=== PATIENT | female | born 1980 | race Caucasian/White ===

== ENCOUNTER → 2016-06-21 | Outpatient (REF) | payer BC ==
[~2016-06-21] MED LIST: BUPR15TA PO; DOCU10CA PO; HYDR-3713 PO; IBUP60TA PO; MOTR200T44 PO
[2016-06-21 10:35] LABS: BASO % 0.7 % (0.0-1.0); EOS # 0.2 K/mm3 (0.0-0.50); EOS % 3.1 % (0.0-3.0); LARGE UNSTAINED CELL # 0.1 K/mm3 (0.0-0.4); LARGE UNSTAINED CELL % 2.3 % (0.0-4.0); LYMPH # 1.7 K/mm3 (1.5-4.5); LYMPH % 31.6 % (24.0-44.0); MEAN CORPUSCULAR HEMOGLOBIN 32.5 pg (27.0-33.0); MEAN CORPUSCULAR HGB CONC 34.4 g/dl (32.0-36.5); MEAN CORPUSCULAR VOLUME 94.4 fl (80.0-96.0); MONO # 0.3 K/mm3 (0.0-0.8); MONO % 6.3 % (0.0-5.0); PLATELET COUNT, AUTOMATED 179 k/mm3 (150-450); RED CELL DISTRIBUTION WIDTH 12.6 % (11.5-14.5); WHITE BLOOD COUNT 5.4 K/mm3 (4.0-10.0)
[2016-06-21 11:14] LABS: ALBUMIN 4.2 GM/DL (3.2-5.2); ALBUMIN/GLOBULIN RATIO 1.17 (1.00-1.93); ALKALINE PHOSPHATASE 95 U/L (45-117); ALT/SGPT 30 U/L (12-78); ANION GAP 7 MEQ/L (8-16); AST/SGOT 17 U/L (15-37); BILIRUBIN,TOTAL 0.3 MG/DL (0.2-1.0); BLOOD UREA NITROGEN 13 MG/DL (7-18); CALCIUM LEVEL 8.8 MG/DL (8.5-10.1); CARBON DIOXIDE LEVEL 29 MEQ/L (21-32); CHLORIDE LEVEL 106 MEQ/L (98-107); CREATININE FOR GFR 0.84 MG/DL (0.55-1.02); FERRITIN 72 NG/ML (8-252); FREE T4 1.01 NG/DL (0.76-1.46); GLOMERULAR FILTRATION RATE > 60.0 (>60); GLUCOSE, FASTING 75 MG/DL (70-105); SODIUM LEVEL 142 MEQ/L (136-145); TOTAL PROTEIN 7.8 GM/DL (6.4-8.2)
[2016-06-21 11:16] LABS: VITAMIN B12 LEVEL 675 PG/ML (247-911)
[2016-06-21 11:17] LABS: FOLATE 16.4 NG/ML (>5.4)
[2016-06-21 11:42] LABS: CONTROL LINE MONO INT CTR LINE PRESENT
== END ==
LOC: M LAB REF 10:22
PROVIDERS: ATTEND Physician Assistant Medical
DX: R53.83 Other fatigue (principal)

== ENCOUNTER → 2016-07-15 | Outpatient (REF) | payer BC | END | disposition home or self-care (01) | LOC: M LAB REF 09:10 | PROVIDERS: ATTEND Physician Assistant Medical | DX: R68.83 Chills (without fever) (principal); R52 Pain, unspecified ==

== ENCOUNTER → 2016-08-01 | Outpatient (REF) | payer BC | LOC: M LAB REF 11:16 | PROVIDERS: ATTEND Physician Assistant | DX: R50.9 Fever, unspecified (principal) ==

== ENCOUNTER → 2016-11-03 | Outpatient (REF) | payer BC ==
[2016-11-03 18:03] LABS: ALBUMIN 3.4 GM/DL (3.2-5.2); ALBUMIN/GLOBULIN RATIO 1.06 (1.00-1.93); ALKALINE PHOSPHATASE 93 U/L (45-117); ALT/SGPT 33 U/L (12-78); ANION GAP 7 MEQ/L (8-16); AST/SGOT 19 U/L (15-37); BILIRUBIN,TOTAL 0.2 MG/DL (0.2-1.0); BLOOD UREA NITROGEN 11 MG/DL (7-18); CALCIUM LEVEL 8.2 MG/DL (8.5-10.1); CARBON DIOXIDE LEVEL 29 MEQ/L (21-32); CHLORIDE LEVEL 107 MEQ/L (98-107); CREATININE FOR GFR 0.86 MG/DL (0.55-1.02); FREE T4 0.93 NG/DL (0.76-1.46); GLOMERULAR FILTRATION RATE > 60.0 (>60); GLUCOSE, FASTING 91 MG/DL (70-105); POTASSIUM SERUM 4.3 MEQ/L (3.5-5.1); SODIUM LEVEL 143 MEQ/L (136-145); TOTAL PROTEIN 6.6 GM/DL (6.4-8.2)
[2016-11-03 18:05] LABS: BASO # 0.1 K/mm3 (0.0-0.2); BASO % 0.8 % (0.0-1.0); EOS # 0.3 K/mm3 (0.0-0.50); EOS % 2.9 % (0.0-3.0); LARGE UNSTAINED CELL # 0.1 K/mm3 (0.0-0.4); LARGE UNSTAINED CELL % 1.6 % (0.0-4.0); LYMPH # 2.6 K/mm3 (1.5-4.5); MEAN CORPUSCULAR HEMOGLOBIN 32.7 pg (27.0-33.0); MEAN CORPUSCULAR HGB CONC 34.2 g/dl (32.0-36.5); MEAN CORPUSCULAR VOLUME 95.6 fl (80.0-96.0); MONO # 0.5 K/mm3 (0.0-0.8); MONO % 5.4 % (0.0-5.0); NEUTROPHILS # 5.5 K/mm3 (1.8-7.7); NEUTROPHILS % 60.2 % (36.0-66.0); PLATELET COUNT, AUTOMATED 153 k/mm3 (150-450); RED CELL DISTRIBUTION WIDTH 12.3 % (11.5-14.5); WHITE BLOOD COUNT 9.1 K/mm3 (4.0-10.0)
[2016-11-04 10:01] LABS: LUTEINIZING HORMONE 9.1 mIU/mL; PROLACTIN 7.1 NG/ML
[2016-11-04 10:02] LABS: FOLLICLE STIMULATING HORMONE 5.4 mIU/mL
== END ==
LOC: M LAB REF 15:32
PROVIDERS: ATTEND Physician Assistant Medical
DX: R53.83 Other fatigue (principal)

== ENCOUNTER → 2017-05-15 | Outpatient (CLI) | payer OTHER ==
--- NOTE | 2017-05-15 13:52 | REP ---
CHEST, TWO VIEWS: COMPARISON: 01/13/2008. There is mild diffuse interstitial infiltrate bilaterally. No consolidating infiltrate is seen. Heart is normal in size and the mediastinal silhouette is unremarkable. The visualized osseous structures are intact. IMPRESSION: Mild diffuse bilateral interstitial infiltrate. Signed by Chicho Leung MD 05/15/2017 03:15 P
== END ==
LOC: M LRY 10:52
PROVIDERS: ATTEND Nurse Practitioner Family
DX: R09.89 Other specified symptoms and signs involving the circulatory and respiratory systems (principal)

== ENCOUNTER 2017-08-20 21:07 | Emergency (ER) | payer OTHER | END 2017-08-20 22:52 | disposition left against medical advice (07) | LOC: M ED 21:07 | DX: M79.672 Pain in left foot (principal); Z53.21 Procedure and treatment not carried out due to patient leaving prior to being seen by health care provider | CPT/HCPCS: 73630 ==

== ENCOUNTER 2018-05-03 19:59 | Emergency (ER) | payer OTHER ==
[2018-05-03] MEDS: diphenhydrAMINE INJ 50MG/ML VIAL (J1200) IV (20:45)
[2018-05-03] MEDS: KETOROLAC 30 MG/ML VIAL (J1885) IV (21:00)
[2018-05-03 21:05] LABS: KETONE, URINE AUTO RFX NEGATIVE (NEGATIVE); LEUKOCYTE ESTERASE UR AUTO RFX NEGATIVE (NEGATIVE); MUCUS, URINE RFX SMALL (NEGATIVE); NITRITE, URINE AUTO RFX NEGATIVE (NEGATIVE); RBC, URINE AUTO RFX 0 /HPF (0-3); SPECIFIC GRAVITY UR AUTO RFX 1.009 (1.002-1.035); SQUAM EPITHELIAL CELL UR AURFX 1 /HPF (0-6); WBC, URINE AUTO RFX 0 /HPF (0-3)
[2018-05-03] MEDS: METOCLOPRAMIDE INJ 10MG/2ML VIAL (J2765) IV (21:05)
[2018-05-03 21:06] LABS: BASO # 0.1 10^3/uL (0.0-0.2); BASO % 0.9 % (0.0-1.0); EOS # 0.3 10^3/uL (0.0-0.50); EOS % 2.9 % (0.0-3.0); HEMATOCRIT 42.8 % (36.0-47.0); HEMOGLOBIN 14.6 g/dl (12.0-15.5); IMMATURE GRANULOCYTE % 0.3 % (0-3.0); LYMPH # 3.8 10^3/uL (1.5-4.5); LYMPH % 36.9 % (24.0-44.0); MEAN CORPUSCULAR HEMOGLOBIN 31.7 pg (27.0-33.0); MEAN CORPUSCULAR HGB CONC 34.1 g/dl (32.0-36.5); MONO # 0.8 10^3/uL (0.0-0.8); MONO % 7.3 % (0.0-5.0); NEUTROPHILS # 5.3 10^3/uL (1.8-7.7); NEUTROPHILS % 51.7 % (36.0-66.0); PLATELET COUNT, AUTOMATED 196 10^3/uL (150-450); RED CELL DISTRIBUTION WIDTH 12.7 % (11.5-14.5); WHITE BLOOD COUNT 10.2 10^3/uL (4.0-10.0)
[2018-05-03 21:15] LABS: AMPHETAMINES LEVEL URINE NEGATIVE (NEGATIVE); BARBITURATES URINE NEGATIVE (NEGATIVE); BENZODIAZEPINES URINE NEGATIVE (NEGATIVE); CANNABINOIDS URINE NEGATIVE (NEGATIVE); COCAINE METABOLITE URINE NEGATIVE (NEGATIVE); METHADONE URINE NEGATIVE (NEGATIVE); OPIATES URINE NEGATIVE (NEGATIVE); PHENCYCLIDINE URINE NEGATIVE (NEGATIVE)
[2018-05-03 21:17] LABS: INR 0.93; PROTHROMBIN TIME 12.5 SECONDS (12.1-14.4)
[2018-05-03 21:18] LABS: PARTIAL THROMBOPLASTIN TIME 27.7 SECONDS (25.4-37.6)
[2018-05-03 21:32] LABS: LACTIC ACID SEPSIS PROTOCOL 0.7 MMOL/L (0.4-2.0)
[2018-05-03 21:39] LABS: ANION GAP 5 MEQ/L (8-16); BLOOD UREA NITROGEN 15 MG/DL (7-18); CALCIUM LEVEL 8.7 MG/DL (8.5-10.1); CARBON DIOXIDE LEVEL 29 MEQ/L (21-32); CHLORIDE LEVEL 108 MEQ/L (98-107); CPK CREATINE PHOSPHOKINASE 112 U/L (26-192); CREATININE FOR GFR 0.89 MG/DL (0.55-1.30); ETHYL ALCOHOL (ETHANOL) < 0.003 % (0.000-0.010); FREE T4 0.92 NG/DL (0.76-1.46); GLOMERULAR FILTRATION RATE > 60.0 (>60); GLUCOSE, FASTING 92 MG/DL (70-100); MAGNESIUM LEVEL 2.1 MG/DL (1.8-2.4); MB/CK RELATIVE INDEX 0.98 (< OR =4); SODIUM LEVEL 142 MEQ/L (136-145); TROPONIN I < 0.02 NG/ML (< 0.10)
[2018-05-03 22:01] LABS: CONTROL LINE UCG INT CTR LINE PRESENT; URINE PREG TEST NEGATIVE (NEGATIVE)
== END 2018-05-03 23:10 | disposition home or self-care (01) ==
LOC: M ED 19:59
DX: R51 Headache (principal); R42 Dizziness and giddiness; H53.9 Unspecified visual disturbance; R20.9 Unspecified disturbances of skin sensation
CPT/HCPCS: J1200

== ENCOUNTER → 2018-10-04 | Outpatient (REF) | payer OTHER ==
[~2018-10-04] MED LIST changes: +IBUP600T42 PO; -IBUP60TA PO
[2018-10-04 11:45] LABS: BASO # 0.1 10^3/uL (0.0-0.2); BASO % 0.9 % (0.0-1.0); EOS # 0.2 10^3/uL (0.0-0.50); HEMATOCRIT 46.4 % (36.0-47.0); HEMOGLOBIN 15.5 g/dl (12.0-15.5); LYMPH # 2.5 10^3/uL (1.5-4.5); LYMPH % 30.3 % (24.0-44.0); MEAN CORPUSCULAR HEMOGLOBIN 31.8 pg (27.0-33.0); MEAN CORPUSCULAR HGB CONC 33.4 g/dl (32.0-36.5); MEAN CORPUSCULAR VOLUME 95.3 fl (80.0-96.0); MONO # 0.6 10^3/uL (0.0-0.8); MONO % 7.1 % (0.0-5.0); NEUTROPHILS # 4.8 10^3/uL (1.8-7.7); NEUTROPHILS % 59.1 % (36.0-66.0); PLATELET COUNT, AUTOMATED 205 10^3/uL (150-450); RED BLOOD COUNT 4.87 10^6/uL (4.00-5.40); WHITE BLOOD COUNT 8.2 10^3/uL (4.0-10.0)
[2018-10-04 12:09] LABS: ALBUMIN 3.4 GM/DL (3.2-5.2); ALT/SGPT 36 U/L (12-78); BILIRUBIN,TOTAL 0.3 MG/DL (0.2-1.0); BLOOD UREA NITROGEN 10 MG/DL (7-18); CALCIUM LEVEL 8.6 MG/DL (8.5-10.1); CARBON DIOXIDE LEVEL 29 MEQ/L (21-32); CHLORIDE LEVEL 109 MEQ/L (98-107); CREATININE FOR GFR 0.75 MG/DL (0.55-1.30); GLOMERULAR FILTRATION RATE > 60.0 (>60); GLUCOSE, FASTING 70 MG/DL (70-100); IRON (FE) 100 UG/DL (50-170); POTASSIUM SERUM 4.2 MEQ/L (3.5-5.1); RHEUMATOID FACTOR QUANT < 10.0 IU/ML (<15.0); SODIUM LEVEL 143 MEQ/L (136-145); THYROID STIMULATING HORMONE 0.871 uIU/ML (0.358-3.740); URIC ACID 3.4 MG/DL (2.6-6.0)
[2018-10-04 12:16] LABS: ERYTHROCYTE SEDIMENTATION RATE 8 mm/hr (0-20)
[2018-10-05 10:20] LABS: TOTAL 25(OH) VITAMIN D 26.4 NG/ML (30.0-100.0)
== END ==
LOC: M LAB REF 11:17
PROVIDERS: ATTEND Physician Assistant Medical
DX: R53.83 Other fatigue (principal); M79.7 Fibromyalgia

== ENCOUNTER → 2019-04-10 | Outpatient (REF) | payer OTHER ==
[2019-04-10 21:10] LABS: APPEARANCE, URINE HAZY (CLEAR); BACTERIA, URINE AUTO 3+ (NEGATIVE); BILIRUBIN, URINE AUTO NEGATIVE (NEGATIVE); BLOOD, URINE BLOOD 1+ (NEGATIVE); COLOR, URINE YELLOW (YELLOW); GLUCOSE, URINE (UA) AUTO NEGATIVE (NEGATIVE); KETONE, URINE AUTO NEGATIVE (NEGATIVE); LEUKOCYTE ESTERASE, URINE AUTO NEGATIVE (NEGATIVE); MUCUS, URINE SMALL (NEGATIVE); NITRITE, URINE AUTO NEGATIVE (NEGATIVE); PROTEIN, URINE AUTO NEGATIVE (NEGATIVE); RBC, URINE AUTO 8 /HPF (0-3); SPECIFIC GRAVITY URINE AUTO 1.023 (1.002-1.035); SQUAMOUS EPITHELIAL CELL UR AU 1 /HPF (0-6); UROBILINOGEN, URINE AUTO 0.2 mg/dL (0.0-2.0); WBC, URINE AUTO 1 /HPF (0-3)
== END ==
LOC: M LAB REF 10:52
PROVIDERS: ATTEND Physician Assistant Medical
DX: N39.0 Urinary tract infection, site not specified (principal)

== ENCOUNTER → 2019-04-18 | Outpatient (REF) | payer OTHER ==
[2019-04-18 15:16] LABS: ALBUMIN 3.4 GM/DL (3.2-5.2); ALT/SGPT 25 U/L (12-78); BILIRUBIN,TOTAL 0.4 MG/DL (0.2-1.0); BLOOD UREA NITROGEN 12 MG/DL (7-18); CALCIUM LEVEL 8.5 MG/DL (8.5-10.1); CARBON DIOXIDE LEVEL 29 MEQ/L (21-32); CHLORIDE LEVEL 107 MEQ/L (98-107); CREATININE FOR GFR 0.84 MG/DL (0.55-1.30); FREE T4 0.85 NG/DL (0.76-1.46); GLOMERULAR FILTRATION RATE > 60.0 (>60); GLUCOSE, FASTING 89 MG/DL (70-100); POTASSIUM SERUM 4.2 MEQ/L (3.5-5.1); SODIUM LEVEL 142 MEQ/L (136-145); TOTAL PROTEIN 6.9 GM/DL (6.4-8.2)
[2019-04-19 10:12] LABS: TOTAL T3 106.1 NG/DL (60.0-181.0)
[2019-04-21 00:07] LABS: Lyme Disease IgG/IgM Antibodie <0.91 ISR (0.00-0.90); Lyme Disease IgM Ab Quantitati <0.80 index (0.00-0.79)
== END ==
LOC: M LAB REF 14:21
PROVIDERS: ATTEND Physician Assistant Medical
DX: R53.83 Other fatigue (principal)

== ENCOUNTER 2019-06-24 09:46 | Emergency (ER) | payer OTHER ==
[~2019-06-24] VITALS: Ht 167.6 cm; Wt 84.0 kg
[2019-06-24 10:10] LABS: BASO # 0.1 10^3/uL (0.0-0.2); BASO % 0.7 % (0.0-1.0); EOS # 0.1 10^3/uL (0.0-0.5); EOS % 1.3 % (0.0-3.0); HEMATOCRIT 48.1 % (36.0-47.0); HEMOGLOBIN 15.7 g/dl (12.0-15.5); LYMPH # 3.1 10^3/uL (1.5-5.0); LYMPH % 30.5 % (24.0-44.0); MEAN CORPUSCULAR HEMOGLOBIN 31.5 pg (27.0-33.0); MEAN CORPUSCULAR HGB CONC 32.6 g/dl (32.0-36.5); MEAN CORPUSCULAR VOLUME 96.4 fl (80.0-96.0); MONO # 0.7 10^3/uL (0.0-0.8); MONO % 6.5 % (0.0-5.0); NEUTROPHILS # 6.1 10^3/uL (1.5-8.5); NEUTROPHILS % 60.6 % (36.0-66.0); PLATELET COUNT, AUTOMATED 195 10^3/uL (150-450); RED BLOOD COUNT 4.99 10^6/uL (4.00-5.40)
--- NOTE | 2019-06-24 10:21 | REP ---
Portable chest x-ray: Single view. History: Chest pain. Comparison chest x-ray: May 15, 2017. Findings: Monitoring electrodes overlie the chest. The lungs are symmetrically aerated and clear. Heart is not enlarged. Pulmonary vasculature is not increased. Pleural angles are sharp. Impression: No active disease. Electronically Signed by Jeferson Bah MD 06/24/2019 10:13 A
[2019-06-24 10:32] LABS: ALBUMIN 3.8 GM/DL (3.2-5.2); ALT/SGPT 28 U/L (12-78); BILIRUBIN,DIRECT 0.1 MG/DL (0.0-0.2); BILIRUBIN,TOTAL 0.4 MG/DL (0.2-1.0); CK-MB VALUE MASS < 1.0 NG/ML (<3.6); CPK CREATINE PHOSPHOKINASE 164 U/L (26-192); LIPASE 67 U/L (73-393); MB/CK RELATIVE INDEX 0.61 (< OR =4); TOTAL PROTEIN 7.3 GM/DL (6.4-8.2); TROPONIN I < 0.02 NG/ML (< 0.10)
[2019-06-24] MEDS ORDERED: ISOVUE-370 76% 100ML VIAL (Q9967) As Ordered ONE (11:05)
[2019-06-24 11:35] LABS: HEMOGLOBIN A1c 5.2 %
--- NOTE | 2019-06-24 11:45 | REP ---
CT pulmonary angiogram: With IV contrast. History: Right chest pain. Rule out pulmonary embolus. Comparison studies: November 06, 2014. Contrast dose: 75 ML of Isovue [address] technique: Helical scanning is acquired and overlapping 1.5 mm and contiguous 3 mm axial images are reformatted. In addition, maximum intensity projection and multiplanar re-formation images are generated in sagittal and coronal imaging projections. CT pulmonary angiographic findings: There is good opacification of the pulmonary arterial tree. There is no CT evidence of pulmonary embolus. Thoracic aorta is normal in caliber and homogeneous in contrast enhancement. There is no evidence of pleural or pericardial effusion. No hilar or mediastinal mass or adenopathy is observed. Normal adrenals are seen bilaterally. There are clips in the gallbladder fossa. There is a cyst in the left lobe of the liver measuring 1.4 cm in greatest diameter. There is a second smaller cyst also in the left lobe. The visualized upper abdominal structures are unremarkable otherwise. No extrathoracic mass or adenopathy is seen. There is no evidence of pulmonary mass or significant pulmonary nodule. No infiltrate or significant atelectasis is seen. Bone window settings show no significant bony abnormality. Impression: Negative CT pulmonary angiogram. No CT evidence of pulmonary embolus. No acute disease. Electronically Signed by Jeferson Bah MD 06/24/2019 11:36 A
--- NOTE | 2019-06-24 11:54 | REP ---
CT abdomen with IV but without oral contrast: History: Loss of appetite. Early emaciation. Positively history of pancreatic carcinoma. CT contrast dose: 100 mL of intravenous Isovue [address] findings: There are four small cysts in the liver, two in the left lobe and two in the right lobe. The largest of these measures 1.4 cm in greatest diameter. No mass or cyst is seen. Normal adrenals are noted. The gallbladder is surgically absent. There is mild diffuse fatty infiltration of the liver. No liver mass lesion is seen. The spleen is unremarkable. The kidneys enhance symmetrically and are morphologically intact. The appendix is surgically absent. Small and large intestinal bowel loops are unremarkable in the upper abdomen. No bony abnormality is seen. Impression: Fatty infiltration of the liver. Multiple small hepatic cysts. No pancreatic abnormality. Post appendectomy. Post cholecystectomy. Electronically Signed by Jeferson Bah MD 06/24/2019 04:55 P
[2019-06-24 12:30] VITALS: BP 131/70
[2019-06-24] MEDS ORDERED: ACETAMINOPHEN TAB 650MG DOSE (2X325MG) PO ONE (12:30)
--- NOTE | 2019-06-25 20:15 | ECGEPIP ---
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
== END 2019-06-24 12:36 | disposition home or self-care (01) ==
LOC: M ED 09:46
DX: R07.9 Chest pain, unspecified (principal); M25.512 Pain in left shoulder; K76.0 Fatty (change of) liver, not elsewhere classified; K76.89 Other specified diseases of liver; F17.210 Nicotine dependence, cigarettes, uncomplicated
CPT/HCPCS: 36415; 71045; 71275; 74160; 80047; 80076; 82550; 82553; 83036; 83690; 84443; 84484; 85025; 93005; 93041; 94760; 99284; Q9967

== ENCOUNTER → 2019-07-18 | Outpatient (REF) | payer OTHER ==
[2019-07-18 17:23] LABS: APPEARANCE, URINE HAZY (CLEAR); BACTERIA, URINE AUTO 1+ (NEGATIVE); BILIRUBIN, URINE AUTO NEGATIVE (NEGATIVE); BLOOD, URINE BLOOD 1+ (NEGATIVE); COLOR, URINE YELLOW (YELLOW); GLUCOSE, URINE (UA) AUTO NEGATIVE (NEGATIVE); KETONE, URINE AUTO NEGATIVE (NEGATIVE); LEUKOCYTE ESTERASE, URINE AUTO NEGATIVE (NEGATIVE); MUCUS, URINE SMALL (NEGATIVE); NITRITE, URINE AUTO NEGATIVE (NEGATIVE); PROTEIN, URINE AUTO NEGATIVE (NEGATIVE); RBC, URINE AUTO 10 /HPF (0-3); SQUAMOUS EPITHELIAL CELL UR AU 4 /HPF (0-6); UROBILINOGEN, URINE AUTO 0.2 mg/dL (0.0-2.0); WBC, URINE AUTO 0 /HPF (0-3)
== END ==
LOC: M LAB REF 14:10
PROVIDERS: ATTEND Physician Assistant Medical
DX: M54.9 Dorsalgia, unspecified (principal)

== ENCOUNTER → 2019-07-21 | Outpatient (REF) | payer OTHER | LOC: M LAB REF 18:07 | PROVIDERS: ATTEND Physician Assistant Medical | DX: J10.1 Influenza due to other identified influenza virus with other respiratory manifestations (principal) ==

== ENCOUNTER → 2019-11-19 | Outpatient (CLI) | payer OTHER ==
[~2019-11-19] MED LIST changes: +LEXA1TAB2 PO
== END ==
LOC: M LABSMTC 11:52
PROVIDERS: ATTEND Anesthesiology
DX: Z03.818 Encounter for observation for suspected exposure to other biological agents ruled out (principal); Z11.59 Encounter for screening for other viral diseases
CPT/HCPCS: C9803; U0003

== ENCOUNTER 2019-11-22 10:55 | Day surgery (SDC) | payer OTHER ==
[~2019-11-22] VITALS: Ht 167.6 cm; Wt 78.5 kg
[~2019-11-22 10:55] MED LIST changes: +NS 1,000 ML IV ONE
[2019-11-22] MEDS ORDERED: LIDOCAINE 2% 100MG/5ML SDV (FOR ANES.) As Ordered ONE (12:22)
[2019-11-22] MEDS ORDERED: propofoL 200 MG/20 ML VIAL As Ordered ONE ×2 (12:22→13:04)
--- NOTE | 2019-11-22 13:21 | ROOR ---
Patient Name: Fatoumata Love Procedure Date: 11/22/2019 12:31 PM Date of : 1980 Age: 39 Room: [facility] Gender: Female Note Status: Finalized Procedure: Upper GI endoscopy Indications: Epigastric abdominal pain, Dyspepsia Providers: London Olmos MD Referring MD: Milena Bean MD Requesting Provider: Medicines: Monitored Anesthesia Care Complications: No immediate complications. Procedure: Pre-Anesthesia Assessment: - Prior to the procedure, a History and Physical was performed, and patient medications and allergies were reviewed. The patient is competent. The risks and benefits of the procedure and the sedation options and risks were discussed with the patient. All questions were answered and informed consent was obtained. Patient identification and proposed procedure were verified by the physician, the nurse and the anesthesiologist in the procedure room. Mental Status Examination: alert and oriented. Airway Examination: normal oropharyngeal airway and neck mobility. Respiratory Examination: clear to auscultation. CV Examination: normal. Prophylactic Antibiotics: The patient does not require prophylactic antibiotics. Prior Anticoagulants: The patient has taken no previous anticoagulant or antiplatelet agents. ASA Grade Assessment: II - A patient with mild systemic disease. After reviewing the risks and benefits, the patient was deemed in satisfactory condition to undergo the procedure. The anesthesia plan was to use monitored anesthesia care (MAC). Immediately prior to administration of medications, the patient was re-assessed for adequacy to receive sedatives. The heart rate, respiratory rate, oxygen saturations, blood pressure, adequacy of pulmonary ventilation, and response to care were monitored throughout the procedure. The physical status of the patient was re-assessed after the procedure. The Endoscope was introduced through the mouth, and advanced to the second part of duodenum. The upper GI endoscopy was accomplished without difficulty. The patient tolerated the procedure well. Findings: The Z-line was regular and was found 36 cm from the incisors. Scattered moderate inflammation characterized by erythema, granularity and linear erosions was found in the gastric body and in the gastric antrum. Biopsies were taken with a cold forceps for Helicobacter pylori testing. Verification of patient identification for the specimen was done by the physician and nurse using the patient's name, date and medical record number. Estimated blood loss was minimal. The duodenal bulb and second portion of the duodenum were normal. Biopsies for histology were taken with a cold forceps for evaluation of celiac disease. Impression: - Z-line regular, 36 cm from the incisors. - Gastritis. Biopsied. - Normal duodenal bulb and second portion of the duodenum. Biopsied. Recommendation: - Patient has a contact number available for emergencies. The signs and symptoms of potential delayed complications were discussed with the patient. Return to normal activities tomorrow. Written discharge instructions were provided to the patient. - High fiber diet. - Continue present medications. - Await pathology results. - Telephone GI clinic for pathology results in 2 weeks. - Return to primary care physician. London Olmos MD London Olmos MD 11/22/2019 1:21:04 PM Electronically signed by London Olmos MD Number of Addenda: 0 Note Initiated On: 11/22/2019 12:31 PM Estimated Blood Loss: Estimated blood loss was minimal.
[2019-11-22 13:37] VITALS: BP 126/57
--- NOTE | 2019-11-22 13:53 | ROOR ---
Patient Name: Fatoumata Love Procedure Date: 11/22/2019 12:32 PM Date of : 1980 Age: 39 Room: [facility] Gender: Female Note Status: Finalized Procedure: Colonoscopy Indications: Change in bowel habits, Constipation Providers: London Olmos MD Referring MD: Milena Bean MD Requesting Provider: Medicines: Monitored Anesthesia Care Complications: No immediate complications. Procedure: Pre-Anesthesia Assessment: - Prior to the procedure, a History and Physical was performed, and patient medications and allergies were reviewed. The patient is competent. The risks and benefits of the procedure and the sedation options and risks were discussed with the patient. All questions were answered and informed consent was obtained. Patient identification and proposed procedure were verified by the physician, the nurse and the anesthesiologist in the procedure room. Mental Status Examination: alert and oriented. Airway Examination: normal oropharyngeal airway and neck mobility. Respiratory Examination: clear to auscultation. CV Examination: normal. Prophylactic Antibiotics: The patient does not require prophylactic antibiotics. Prior Anticoagulants: The patient has taken no previous anticoagulant or antiplatelet agents. ASA Grade Assessment: II - A patient with mild systemic disease. After reviewing the risks and benefits, the patient was deemed in satisfactory condition to undergo the procedure. The anesthesia plan was to use monitored anesthesia care (MAC). Immediately prior to administration of medications, the patient was re-assessed for adequacy to receive sedatives. The heart rate, respiratory rate, oxygen saturations, blood pressure, adequacy of pulmonary ventilation, and response to care were monitored throughout the procedure. The physical status of the patient was re-assessed after the procedure. The Colonoscope was introduced through the anus and advanced to the terminal ileum, with identification of the appendiceal orifice and IC valve. The colonoscopy was performed without difficulty. The patient tolerated the procedure well. The quality of the bowel preparation was good. The terminal ileum, ileocecal valve, appendiceal orifice, and rectum were photographed. Scope insertion time was 3 minutes. Scope withdrawal time was 9 minutes. The total duration of the procedure was 12 minutes. Findings: The perianal and digital rectal examinations were normal. The terminal ileum appeared normal. Five sessile polyps were found in the recto-sigmoid colon and transverse colon. The polyps were 3 to 6 mm in size. These polyps were removed with a cold biopsy forceps. Resection and retrieval were complete. Verification of patient identification for the specimen was done by the physician and nurse using the patient's name, date and medical record number. Estimated blood loss was minimal. Multiple small-mouthed diverticula were found in the sigmoid colon. There was no evidence of diverticular bleeding. Non-bleeding external and internal hemorrhoids were found during retroflexion. The hemorrhoids were small. Impression: - The examined portion of the ileum was normal. - Five 3 to 6 mm polyps at the recto-sigmoid colon and in the transverse colon, removed with a cold biopsy forceps. Resected and retrieved. - Moderate diverticulosis in the sigmoid colon. There was no evidence of diverticular bleeding. - Non-bleeding external and internal hemorrhoids. Recommendation: - Patient has a contact number available for emergencies. The signs and symptoms of potential delayed complications were discussed with the patient. Return to normal activities tomorrow. Written discharge instructions were provided to the patient. - High fiber diet. - Continue present medications. - Use fiber, for example Citrucel, Fibercon, Konsyl or Metamucil. - Await pathology results. - Repeat colonoscopy in 5-10 years for surveillance of multiple polyps. - Telephone GI clinic for pathology results in 2 weeks. - Return to primary care physician. London Olmos MD London Olmos MD 11/22/2019 1:53:05 PM Electronically signed by London Olmos MD Number of Addenda: 0 Note Initiated On: 11/22/2019 12:32 PM Estimated Blood Loss: Estimated blood loss was minimal.
== END 2019-11-22 13:50 | disposition home or self-care (01) ==
LOC: M OPP 10:55
PROVIDERS: ATTEND Internal Medicine Gastroenterology
DX: K63.5 Polyp of colon (principal); K64.8 Other hemorrhoids; K57.30 Diverticulosis of large intestine without perforation or abscess without bleeding; R19.4 Change in bowel habit; K29.70 Gastritis, unspecified, without bleeding; R10.13 Epigastric pain; Z79.899 Other long term (current) drug therapy; F17.210 Nicotine dependence, cigarettes, uncomplicated; Z80.3 Family history of malignant neoplasm of breast

== ENCOUNTER → 2019-11-23 | Outpatient (CLI) | payer OTHER ==
[~2019-11-23] MED LIST changes: -NS 1,000 ML IV ONE
--- NOTE | 2019-11-23 17:09 | REP ---
Four views left wrist: 11/23/2019. Indication: Left wrist swelling. Comparison: None. Findings: There is no acute fracture, subluxation or dislocation. No lytic or blastic lesions are present. Impression: No acute osseous injury of the left wrist. Electronically Signed by Harjit Bautista DO 11/23/2019 05:00 P
== END ==
LOC: M RAD 16:14
PROVIDERS: ATTEND Physician Assistant Medical
DX: M25.532 Pain in left wrist (principal); M79.89 Other specified soft tissue disorders

== ENCOUNTER → 2019-12-06 | Outpatient (CLI) | payer OTHER, SELFPAY ==
--- NOTE | 2019-12-12 13:23 | REP ---
ABDOMEN SITZ MARKER STUDY: 12/11/2019. CLINICAL HISTORY: Constipation, unspecified. FINDINGS: The patient took the marker capsule on 12/06/2019, as documented by the technologist. There are two markers in the left lower quadrant, presumably in the distal sigmoid and two more in the more proximal left colon in its mid course, well below the splenic flexure and above the iliac crest. There are no other retained markers. Bilateral symmetric rene in the pelvis related to prior surgery. There is some stool in the right colon, contiguous to the distal left colon but mild to moderate in volume, and I would regard this as normal. IMPRESSION: 1. A total of four ring markers from the Sitz marker study are seen remaining in the sigmoid and left colon. Electronically Signed by Sarbjit So MD 12/12/2019 06:56 P
== END ==
LOC: M RAD 10:17
PROVIDERS: ATTEND Internal Medicine Gastroenterology
DX: K59.00 Constipation, unspecified (principal)

== ENCOUNTER → 2020-02-20 | Outpatient (REF) | payer BC, OTHER, SELFPAY | LOC: M LAB 18:14 | PROVIDERS: ATTEND Physician Assistant Medical | DX: Z20.828 Contact with and (suspected) exposure to other viral communicable diseases (principal) ==

== ENCOUNTER → 2020-03-11 | Outpatient (REF) | payer BC, OTHER | LOC: M LAB REF 13:23 | PROVIDERS: ATTEND Physician Assistant Medical | DX: R53.83 Other fatigue (principal); R51.9 Headache, unspecified; K21.9 Gastro-esophageal reflux disease without esophagitis ==

== ENCOUNTER → 2020-06-07 | Outpatient (REF) | payer BC | LOC: M LAB REF 15:02 | PROVIDERS: ATTEND Physician Assistant | DX: R05 Cough (principal); R53.83 Other fatigue; R68.83 Chills (without fever) ==

== ENCOUNTER → 2020-11-20 | Outpatient (CLI) | payer BC ==
--- NOTE | 2020-11-20 19:18 | REP ---
INDICATION: LEFT LQ PAIN/ R/O STONE. COMPARISON: Comparison KUB study December 11, 2019.. TECHNIQUE: Supine abdominal views, two views presented. FINDINGS: There are clips in right upper quadrant. There is formed stool in the ascending, transverse, and descending colon. A small amount of formed stool seen in the rectosigmoid. There are surgical sutures in the right and left true pelvis. Psoas margins and flank stripes are intact. No small bowel dilation is seen. No mass, organomegaly, or pathologic calcification is seen. IMPRESSION: Postoperative changes in the pelvis. No urinary tract calculus is visible. No small or large bowel dilation seen. Normal bowel gas pattern. <Electronically signed by Matthew Bah > 11/20/201914
== END ==
LOC: M RAD 18:57
PROVIDERS: ATTEND Physician Assistant Medical
DX: R10.32 Left lower quadrant pain (principal)

== ENCOUNTER → 2021-10-11 | Outpatient (REF) | payer BC | LOC: M LAB REF 12:23 | PROVIDERS: ATTEND Physician Assistant | DX: R05.9 Cough, unspecified (principal) ==

== ENCOUNTER → 2025-03-14 | Outpatient (CLI) | payer BC ==
[~2025-03-14] MED LIST changes: +ACET-683 PO; +AMOX875T2 PO; +MILKSUS3 PO; +TUMS500C PO
[2025-03-14 13:37] LABS: BASO # 0.1 10^3/uL (0.0-0.2); BASO % 1.1 % (0.0-1.0); EOS # 0.1 10^3/uL (0.0-0.5); EOS % 1.3 % (0.0-3.0); LYMPH # 1.3 10^3/uL (1.5-5.0); LYMPH % 21.3 % (24.0-44.0); MONO # 1.0 10^3/uL (0.0-0.8); MONO % 15.2 % (2.0-8.0); NEUTROPHILS # 3.8 10^3/uL (1.5-8.5); NEUTROPHILS % 60.3 % (36.0-66.0); PLATELET COUNT, AUTOMATED 190 10^3/uL (150-450)
[2025-03-14 13:57] LABS: ALT/SGPT 22 U/L (7.0-40); AST/SGOT 20 U/L (<34); CALCIUM LEVEL 8.8 MG/DL (8.5-10.1); CARBON DIOXIDE LEVEL 30 MMOL/L (20-31); CHLORIDE LEVEL 103 MMOL/L (98-107); CHOLESTEROL LEVEL 238 MG/DL (<200); CHOLESTEROL RISK RATIO 4.72 (<5); CREATININE FOR GFR 0.77 MG/DL (0.55-1.30); GLOMERULAR FILTRATION RATE > 90.0 (>58); LDL CHOLESTEROL 153.4 MG/DL (<100); NON-HDL-C 187.6 MG/DL; POTASSIUM SERUM 4.7 MMOL/L (3.5-5.1); SODIUM LEVEL 139 MMOL/L (136-145); TRIGLYCERIDES LEVEL 171 MG/DL (<150); VITAMIN B12 LEVEL 630 PG/ML (211-911)
[2025-03-14 14:00] LABS: ESTIMATED AVERAGE GLUCOSE 105.0 MG/DL (60-110)
== END ==
LOC: M LAB 10:57
PROVIDERS: ATTEND Internal Medicine
DX: R68.81 Early satiety (principal); R53.83 Other fatigue; E66.09 Other obesity due to excess calories; Z68.30 Body mass index [BMI] 30.0-30.9, adult

== ENCOUNTER → 2025-03-15 | Outpatient (REF) | payer BC | LOC: M SFHCLERA 14:41 | PROVIDERS: ATTEND Internal Medicine | DX: R68.81 Early satiety (principal) ==